=== PATIENT | male | born 1945 | race Caucasian/White ===

== ENCOUNTER 2021-11-24 16:53 | Emergency (ER) | payer MEDICARE, BC ==
[~2021-11-24] VITALS: Ht 170.2 cm; Wt 84.0 kg
[2021-11-24 20:19] LABS: BASOPHILS % 0.7 % (0.0-2.0); EOSINOPHILS % 3.9 % (0.0-5.0); HEMATOCRIT. 44.3 % (42.0-52.0); HEMOGLOBIN. 15.3 g/dL (14.0-18.0); LYMPHOCYTES % 29.9 % (20.0-50.0); MEAN CORPUSCULAR HEMOGLOBIN 37.5 pg (28.0-32.0); MEAN CORPUSCULAR VOLUME 108.4 fL (80.0-94.0); MONOCYTES % 7.5 % (2.0-8.0); PLATELET 217 x1000/uL (130-400); RED BLOOD CELL COUNT 4.08 mill/uL (4.7-6.1); RED CELL DISTRIBUTION WIDTH 14.3 % (11.6-14.6)
[2021-11-24 20:31] LABS: CHLORIDE 109 mEq/L (98-107)
[2021-11-24] MEDS ORDERED: KETOROLAC 30MG/ML VIAL IM ONE (23:30)
[2021-11-24] MEDS ORDERED: METHOCARBAMOL 500MG TABLET PO ONE (23:30)
[2021-11-25] MEDS ORDERED: BACL-141 MT (01:34)
[2021-11-25] MEDS ORDERED: IBUP-2028 MT (01:34)
[2021-11-25 01:57] VITALS: BP 134/76
== END 2021-11-25 01:58 | disposition home or self-care (01) ==
LOC: ER 16:53
DX: S39.012A Strain of muscle, fascia and tendon of lower back, initial encounter (principal); X50.1XXA Overexertion from prolonged static or awkward postures, initial encounter; X50.3XXA Overexertion from repetitive movements, initial encounter; I10 Essential (primary) hypertension; Y93.89 Activity, other specified; Y92.9 Unspecified place or not applicable; Z88.0 Allergy status to penicillin; Z88.2 Allergy status to sulfonamides; Z85.528 Personal history of other malignant neoplasm of kidney; Z98.890 Other specified postprocedural states
CPT/HCPCS: 36415; 71045; 72100; 72170; 80053; 83880; 85025; 93005; 96372; 99285; J1885